=== PATIENT | female | born 1985 | race Caucasian/White ===

== ENCOUNTER → 2019-12-29 | Outpatient (CLI) | payer OTHER, SELFPAY ==
[2016-12-05 01:24] VITALS: BMI 33.0
[2019-12-29 19:21] LABS: Chlamydia Trachomatis by PCR Negative (Negative); Neisserai gonorrhoeae by PCR Negative (Negative); Probe Check PASS; Sample Adequacy Control PASS; Specimen Processing Control PASS
[2020-01-01 20:33] LABS: HPV Reflexed? NOT INDICATED
== END | disposition home or self-care (01) ==
PROVIDERS: Referring Provider Obstetrics & Gynecology; Visit Provider Obstetrics & Gynecology
DX: Z12.4 Encounter for screening for malignant neoplasm of cervix (principal); Z11.3 Encounter for screening for infections with a predominantly sexual mode of transmission
CPT/HCPCS: 87491; 87591; 88175; G0145

== ENCOUNTER → 2020-01-12 | Outpatient (CLI) | payer OTHER, SELFPAY ==
[2020-01-12 18:09] LABS: Color, Urine Yellow (Yellow); Glucose, Dipstick Normal (Normal); Ketone-Dipstick Negative (Negative); Leukocyte Esterase-Dipstick Negative /ul (Negative); Nitrite-Dipstick Negative (Negative); Occult Blood-Urine Negative /ul (Negative); Protein-Dipstick Negative (Negative); Specific Gravity, Urine 1.015 (1.002-1.030); Urine Bilirubin Dipstick Negative (Negative); Urine Clarity Clear (Clear); Urine Urobilinogen Normal (Normal); Urine pH 6.5 (5.0 - 8.0)
[2020-01-12 18:19] LABS: Absolute Lymphocyte Count 1.54 X10^3/uL (0.83-4.51); Basophil# 0.01 X10^3/uL; Basophil% 0.1 % (0-1); Eosinophil# 0.05 X10^3/uL; Eosinophils% 0.6 % (0-5); Hematocrit 37.9 % (37-47); Hemoglobin 13.3 g/dL (12.0-15.0); Lymphocyte # 1.54 X10^3/ul (4.0); Lymphocyte % 19.3 % (19-41); Mean Corp Hgb Conc 35.1 g/dL (32-36); Mean Corpuscular Volume 88.3 fL (81-99); Monocyte# 0.33 X10^3/uL; Monocyte% 4.1 % (0-10); NRBC Flagged by Analyzer 0 % (0-5); Neutrophil # 6.04 X10^3/uL (2.7-7.7); Neutrophil % 75.6 % (47-70); Platelet Count 215 K/mm3 (150-450); RBC Distribution Width CV 12.6 % (11.6-14.6); Red Blood Count 4.29 M/mm3 (4.2-5.4)
[2020-01-12 18:27] LABS: Thyroid Stim Hormone (TSH) 1.47 uIU/mL (0.358-3.74)
[2020-01-12 18:34] LABS: Amphetamine Urine VISTA NEGATIVE (<1000 ng/mL); Barbiturate Urine VISTA NEGATIVE (< 200 ng/mL); Benzodiazepine Urine VISTA NEGATIVE (< 200 ng/mL); Cocaine Urine VISTA NEGATIVE (< 300 ng/mL); Ecstacy Urine VISTA NEGATIVE (< 500 ng/mL); Methadone Urine VISTA NEGATIVE (< 300 ng/mL); PCP Urine VISTA NEGATIVE (< 25 ng/mL); THC Urine VISTA NEGATIVE (< 50 ng/mL); Vista UDS pH Range 6
[2020-01-13 09:24] LABS: HIV - WCH Non-Reactive (Nonreactive); Hepatitis B Surface Antigen Non-Reactive (Nonreactive); Hepatitis C Antibody Non-Reactive (Nonreactive); Rubella IgG 42.2 IU/mL
[2020-01-15 01:34] LABS: Prenatal RPR NONREACTIVE (NONREACTIVE)
== END | disposition home or self-care (01) ==
PROVIDERS: Referring Provider Obstetrics & Gynecology; Visit Provider Obstetrics & Gynecology
DX: Z34.81 Encounter for supervision of other normal pregnancy, first trimester (principal)
CPT/HCPCS: 80307; 81002; 84443; 85025; 86703; 86762; 86803; 87340

== ENCOUNTER → 2020-05-03 | Outpatient (CLI) | payer OTHER, SELFPAY ==
[2020-05-03 12:14] LABS: Glucose Challenge Gest 1H 50g 79 mg/dL (70-140)
== END | disposition home or self-care (01) ==
LOC: WOBLAB 10:13
PROVIDERS: Visit Provider Obstetrics & Gynecology
DX: Z34.83 Encounter for supervision of other normal pregnancy, third trimester (principal)
CPT/HCPCS: 36415; 82950

== ENCOUNTER → 2020-05-17 | Outpatient (CLI) | payer OTHER, SELFPAY ==
[2016-12-05 01:24] VITALS: BMI 33.0
[2020-05-17 10:51] LABS: Hematocrit 34.4 % (37-47); Mean Corp Hgb Conc 34.9 g/dL (32-36); Mean Corpuscular Volume 91.7 fL (81-99); Mean Platelet Vol. 9.8 fl (6.2-12.0); Platelet Count 182 K/mm3 (150-450); RBC Distribution Width CV 13.1 % (11.6-14.6); RBC Distribution Width SD 42.5 fl (35.1-43.9); Red Blood Count 3.75 M/mm3 (4.2-5.4); White Blood Count 8.6 K/mm3 (4.4-11.0)
== END | disposition home or self-care (01) ==
PROVIDERS: Visit Provider Obstetrics & Gynecology
DX: Z34.83 Encounter for supervision of other normal pregnancy, third trimester (principal)
CPT/HCPCS: 36415; 85027

== ENCOUNTER 2020-06-28 13:25 | Inpatient (IN) | payer OTHER, SELFPAY ==
[2016-12-05 01:24] VITALS: BMI 33.0
[2020-06-28] VITALS (67 sets, daily range): BP systolic 111–145; BP diastolic 57–89; PULSE 74–117; TEMP 36.4–37.3; O2SAT 89–100; BMI 27.3
[2020-06-28] MEDS: Lactated Ringers 1,000 ML 50 ML IV (14:00)
[2020-06-28] MEDS: Lactated Ringers 500 ML 999 ML IV (14:05)
[2020-06-28] MEDS: Betamethasone/Betamethasone 30 MG/5 ML Vial 12 MG IM (14:13)
[2020-06-28 14:16] LABS: Absolute Lymphocyte Count 1.54 X10^3/uL (0.83-4.51); Absolute Neutrophil Count 7.1 X10^3/uL (2.0-7.7); Basophil# 0.02 X10^3/uL; Basophil% 0.2 % (0-1); Eosinophil# 0.09 X10^3/uL; Hematocrit 36.2 % (37-47); Hemoglobin 12.3 g/dL (12.0-15.0); Lymphocyte # 1.54 X10^3/ul (4.0); Lymphocyte % 16.6 % (19-41); Mean Corpuscular Volume 91.2 fL (81-99); Mean Platelet Vol. 10.4 fl (6.2-12.0); Monocyte# 0.47 X10^3/uL; Monocyte% 5.1 % (0-10); NRBC Flagged by Analyzer 0 % (0-5); Neutrophil % 76.8 % (47-70); Platelet Count 190 K/mm3 (150-450); RBC Distribution Width CV 13.2 % (11.6-14.6); RBC Distribution Width SD 43.9 fl (35.1-43.9); Red Blood Count 3.97 M/mm3 (4.2-5.4); White Blood Count 9.3 K/mm3 (4.4-11.0)
--- NOTE | 2020-06-28 14:32 | HP.PCM_ITS ---
- Problem List (1) 36 weeks gestation of Status: Acute (2) Active labor Status: Acute Qualifiers: Fetus number: single or unspecified fetus Qualified Code(s): O60.10X0 - labor with delivery, unspecified trimester, not applicable or unspecified (3) Factor V deficiency Status: Acute (4) MTHFR (methylene THF reductase) deficiency and homocystinuria Status: Acute History and Physical Date of Admission: 06/28/20 [facility] [place] ANTEPARTUM RECORD - HISTORY AND PHYSICAL (06/28/2020) Name: WILDA MAJANO OB Physician: PETER [place]'s Physician: MERON [facility] [employer] LEADER ...................................................................... : 1985 Age: 35 Address: [address] [place] [address] Phone: [phone] Insurance Carrier: DIONYRachelLYNN [id number] Emergency Contact: MARIA T SHAFFER [phone] ...................................................................... Final ANA: 07/22/20 By Ultrasound: 12 weeks 4 days S: This is a 35y old at 36.4 weeks gestation who presented to the OB office today with complaints of consistent contractions. Reports contractions are now every 3-5 minutes and hard to breath through them. has been complicated with situational depression with an EPDS=23. Mood is stable on current medication dosage. Maternal history of Factor V Leiden with single MTHFR mutation, currently on daily BASA. PARITY: (G-Total Pregnancies P-Fullterm,Premature,Induced AB,Spont AB, Ectopics, Multiple,Living) ANA CONFIRMATION: By LMP: 10/18/19 Final ANA: 07/22/20 BLOOD TYPE: AFP: creen Nega 1 HR P GBS: Group B Beta Streptococcus is not isolated. Original Ordering Provider: Glensi Brasher RAVINDRA Culture Group B Beta Streptococcus is not isolated. Rublla titer (>10 immune)--May 30 2011: 12 Hepatatis B ben AG-- Apr 11 2013: Negative CULTURES:-- OB PROBLEM LIST: Allergy to PCN- ANAPHALAXIS AMA- declines any screening Declined MSAFP, CF. Wants cell free DNA testing Depression! EPDS=23 on 05-03-20 d/t situational stress/anxiety. Watch for worsening PPD Repeat on 06/14 was 18 Hererozygote Factor V Leiden, single MTHFR Mutation, elevated NIKKY; plan Baby ASA and consider 39 week induction; declines Lovenox ALLERGIES: PCN Anaphalaxis Penicillins Anaphylaxis MEDICATIONS: aspirin 81 mg chewable tablet One pill by mouth once a day hydroxyzine HCl 25 mg tablet one tablet every 12 hours as needed prednisone 10 mg tablets in a dose pack Take per package instructions 28 mg iron-800 mcg tablet One pill by mouth once a day Wellbutrin XL 150 mg 24 hr tablet, extended release One pill by mouth once a day Zoloft 100 mg tablet Two pills by mouth once a day Zoloft 50 mg tablet add 1 daily to 100 mg tablet Zyrtec 10 mg Tablet daily SOCIAL HISTORY: Smoking - Never Alcohol Use - denies drinking Diet - balanced Diet Lifestyle - sparated Exercise - minimal 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 Illicit Drug Use - denies use of street drugs Sexual Activity - getting Residence - lives with Place of - [place], [place] Hours Worked - 30-40 Spouse-Sig Other Name - Doyle Oswald (FOB) Spouse-Sig Other Occupation - Teacher Spouse-Sig Other Phone No - [phone] cell Children Name(s) - Ronnie (JW), Derrick (EB), Dylan (EB) PRIOR DELIVERY HISTORY ___ DEL DATE GEST LAB WT LB WT OZ TYPE ANES LABOR TX 01 Feb 08 8 0 0 0 Sab None No 01 Feb 10 8 0 0 0 p mol None No 01 Feb 11 9 0 0 0 Sab None No 06 Apr 12 39 12 7 1 Vag Epidural No 10 Feb 14 39 8 8 1 Vag Epidural No 21 Mar 17 38 12 8 2 Vag Epidural No ANTEPARTUM FLOW CHART VISIT GE RTC FU F F IL U U DATE WK MD WKS HT PN HR M SS BP ED WT IL GL D EF ST __ ____ ___ __ __ ___ __ __ __ ___ __ __ __ ___ __ 12 Oct 36 CH 1 + + 130/76 0 171 tr - 3+ 50 -1 28 Sep 34 CM 2 32 V + + 124/82 0 166 tr - 14 Sep 32 CH 2 34 V + + 120/68 0 168 tr ne 31 Aug 30 CH 2 29 + + 110/74 0 165 tr - 17 Aug 28 CH 2 29 + + 120/78 0 163 tr ne 20 Antolin 24 CH 4 24 + + 120/74 0 165 tr - 22 Nathaniel 20 CH 4 20 on + 112/82 0 159 tr - January 31 CH 3 + + 100/60 0 159 tr - 27 Dec 27 JMW US 110/70 0 151 ANTEPARTUM NOTE(S): Jun 28 2020: see note Jun 14 2020: see note May 31 2020: May 17 2020: May 03 2020: no preg complaints . See note Apr 05 2020: feeling well. Glucola given. Mar 08 2020: feeling well. Feb 13 2020: see note Jan 12 2020: COMPREHENSIVE ANTEPARTUM NOTE(S): Jun 28 2020: Wilda is being seen for PNV. Pt is 36 weeks and 4 days. She came in with cxs and possible ROM. She states cxs started 06/26/20 and intensified yesterday. Pt was put on NST for about 5 mins and then Constance Mcelroy came into check strip states pt is having variables and possible ROM to put pt in a room to be checked. AM Jun 28 2020: Placed on NST with contraction seen, FHR basline 130, +accels, variables noted. States contractions are Q4-5m. Started Sunday, but got more consistent and painful last night. Might be leaking or just urinating self. Nitrazine strip negative, but on inspection with speculum cervix appears open. SVE 350/-1. Reports +FM. Will send to for 2 hours of monitoring to admit or send home. To follow up in 1 week if not in active labor. - CH Jun 22 2020: 05/31/2020: Wilda is here today for PNV. States she is feeling well with just BH contractions. Good FM. Is covered with what is assume to be Poison Maggie Bilateral forearms and bilateral legs. No edema noted. Urine dipped tr and neg. EPDS score is 11 today. LSS 05/31/2020: Reports +FM. FHR 148. Feeling better with an EPDS= 18, but reports not letting anxiety get to her now. She is still having a lot of anxiety over the situation, but feels like she has been to control it better. Vertex this week. Poison Maggie right now which explained is worse in . She was helping a friend pull weeds in their yard. Has tried Calamine and Benadryl with no relief. In consult with Irene Champagne will send in a prednisone pack for her since it is on bilateral legs, bilateral arms and abdomen. To return in 2 weeks for routine PNV. Correctional Program Officer will not be in the office, but can see another provider ALEX BORJAS, or LILLY then return to writers schedule. At her 36 week appt we will schedule her IOL for 39 weeks. - Jun 14 2020: Wilda is here for visit. States still really struggling with her situation. She is afraid if she goes to counseling this FOB will use it against her. Encouraged her to see counseling and that would be a very unlikely outcome that trying to get help with dealing with sharing a child with someone cheating on her seems to be a benefit to him and their child. Much support provided. EPSD completed with score of 18. LMT Jun 14 2020: 35 yo @ 34/4w. Feeling +FM, denies LOF/VB. EPDS 19 today. Denies SI/HI. WIll increase zoloft to 150 mg daily, considering counseling. Has many life stressors and little support at home. Factor V leiden heterozygous, if family hx of VTE consider anticoagulation in period. May 31 2020: Wilda is here today for PNV. States she is feeling well with just BH contractions. Good FM. Is covered with what is assume to be Poison Maggie Bilateral forearms and bilateral legs. No edema noted. Urine dipped tr and neg. EPDS score is 11 today. LSS May 31 2020: Reports +FM. FHR 148. Feeling better with an EPDS= 18, but reports not letting anxiety get to her now. She is still having a lot of anxiety over the situation, but feels like she has been to control it better. Vertex this week. Poison Maggie right now which explained is worse in . She was helping a friend pull weeds in their yard. Has tried Calamine and Benadryl with no relief. In consult with Irene Champagne will send in a prednisone pack for her since it is on bilateral legs, bilateral arms and abdomen. To return in 2 weeks for routine PNV. Correctional Program Officer will not be in the office, but can see another provider ALEX BORJAS, or LILLY then return to writers schedule. At her 36 week appt we will schedule her IOL for 39 weeks. - May 17 2020: Wilda is her today for her PNV. Good FM. No edema present today. States that the Zoloft and Wellbutrin is not helping. She is taking Xanax PRN which helps her sleep at night but does not help her depression. EPDS score of 19. Rx and allergie reviewed today. No other questions or concerns expressed today. KARLEYW May 17 2020: Reviewed GTT being WNL. CBC needs repeated today. Reports +FM. FHR 148-158. EPDS today = 19. Feeling a little better, but very situational depression/stress. Atarax with Unisom is enough to help her relax to be able to sleep. Zoloft and Wellbutrin is not helping yet, but is agrees to keep it for another couple of weeks to see if it takes further effect. Tearing up throughout visit with lots of emotional support given. Feels like nothing is going to help as long as FOB is harrassing her, telling her how awful she is, shes being immature etc. Not sure if she wants him to be able to come to appts or . Discussed the effects of stress on fetus and states she understands. Will do whatever feels best for her. Understands if feelings worsen or if thoughts of harming self to call immeidately. To return in 2 weeks for routine PNV. - CH May 03 2020: NO pregnanacy complaints but is having relationship issues with FOB. He cheated on her and but wants to be involved in baby care. Tad is strggeling with her emotions on being hurt by his chaeting on her and if she should allow him to be part of baby care and attend delivery. Is on 200 mg Zoloft.[place] scale 23 . May 03 2020: See above. EPDS=23. 4-3-20 EPDS was 3 with Zoloft 200mg QD. Had a counselor, but didn't like the old one. Will call her insurance today to find out where is covered and will call us with a name. Will add Wellbutrin 150mg QD and Atarax 25mg Q12H as needed since she isn't able to sleep. Agrees to try Benadryl or Unisom, warm baths at bedtime, deep breathing exercises and is going to use oils for relaxation. To return in 2 weeks, but to call with ANY increase in depression or anxiety and agrees. - CH Apr 05 2020: Lotd of +FM. FHR 152. Feeling well. Asking about restrictions at the gym. Discussed having a load mixer for weight lifting and continuing current PRs and not trying to increase PRs. States understanding. Worried about gaining too much weight after losing 30 lbs prior to . To continue healthy lifestyle. Glucola given and instructions reviewed. To return in 4 weeks for routine PNV and will then start Q2 week appts. - Mar 08 2020: Here with new FOB for anatomy US. US today reveals male fetus, AGA, with EFW 32%. FHR on US 153. All anatomy visualized and WNL. Reports +FM. No other questions or concerns today.To return in 4 weeks for routine PNV. - Feb 13 2020: Wilda is being seen for PNV. Pt has not been feeling well due to headaches. Pt states she feels she needs to drink more since being active at the gym and being outside alot. Pt states tylenol does not help and she would get headaches in prior . She also complains of cramping. AM Feb 13 2020: Declines toxo screening with cats at home. Does have some FM. FHR today 150. Has varicose veins in the right ankle, calf and thigh. The thigh one is hurting, but doesn't want doppler study at this time. Will watch it and if worsening will call. Advised thigh high compression stockings. To return in 3 weeks for anatomy US and PNV. - Jan 16 2020: Telehealth NOB completed today. Wilda is AB3. She relates going through a dissolution currently. is not the FOB of baby. New FOB plans to be involved and her current does not know she is . She is feeling pretty well except for fatigue. Working as a nursing home assistant administrator currently. She is moving right now and is stressed with all going on. was unplanned and she is moving along with Covid-19 pandemic while from . Reviewed AMA diagnosis and she declines any testing for this. Not interested in MSAFP, CF, or cfDNA testing. She is active and feels she takes good care of her self. As this is her fourth child she is without any real questions or concerns. She plans vaginal delivery and as has done prior. Labs reviewed but does have cats and changes litter box and needs to have Toxo studies done at next visit. Agreeable to this. Consents completed. Encouraged compliance with Covid 19 restrictions. Without question or concern. LMT NEW Jan 11 2020: (m,m,f*) Boyfriend's first child. Had anatomy Us today which is consistent with LMP and ANA 07/22/20. FHR 161. Wants to add sneak peak to lab work today instead of the chromosomal tesing. Is anxious about gender, but boyfriend wants to do a gender reveal. Is worried about her three kids accepting the new baby as their sibling. She is still going through a divorce and trying to do 50/50 custody and stay amicable. EPDS=3. Boyfriend is AA and can be tested for sickle cell trait since hasn't been before. Is slightly nauseas, but otherwise feeling really well. Denies any questions or concerns. To return in 4 weeks for routine PNV with JW. - Dec 29 2019: Wilda presents here today for Missed Menses appointment. 34 y.o. G 7 P 3 non-smoker with regular menses and LMP of 10-18-19 lasting jose average of 4 days. UPT is positive today in our Office. Presents at 10 weeks with an approximate ANA of 07-24-20. Denies spotting/bleeding thus far in . Concerns voiced regarding history of Missed AB's . History of normal pap screenings from 2010 to 2014, ASCUS in 2016, and normal in 2016. Medication and Allergy lists up-dated and currently taking an OTC Vitamin and An ASA 81 mg daily. JONN Dec 28 2020: ok Aug 04 2019: Wilda is being seen for annual. LMP 07-26-19. Menses monthly and regular. Last pap 2017 WNL, pap due 2019. Pt needs refill on Zoloft. Medications and allergies are up to date. AM Aug 04 2019: Wilda is a here for annual exam; Pap in 2006 WNL, pap today deferred per ACSSP guidelines until 2021 or patient request; patient declines pelvic exam today; denies problems, relationship monogamous, menses Q 30 days, lasting 3-5 day, bleeding begins moderately heavy then tapes off. Has experienced a 40 lb weight loss accomplished via diet and Crossfit. Depression well controlled on current dose of Zoloft, needs refill; not using contraception, is OK w/potential of another ; head to toe exam w/clinical breast exam normal; reinforced diet/exercise accomplishments, encouraged baseline mammogram by age 40, discussed potential cycle changes as approaches perimenopause, refilled Zoloft; RTO for next annual and PRN - KVW REVIEW OF SYSTEMS: GENERAL - Denies fever, or chills SKIN - Denies rash, new skin lesions, or change in moles EYES - Denies blurred vision, or change in visual acuity EARS - Denies ear pain, or difficulty hearing NOSE - Denies nasal congestion, discharge, or bleeding MOUTH - Denies sore throat, or difficulty swallowing NECK - Denies pain or swelling RESPIRATORY - Denies shortness of breath, cough, wheezing CARDIOVASCULAR - Denies palpitations, chest pain, orthopnea, PND, peripheral edema, syncope or claudication GASTROINTESTINAL - Denies nausea, vomiting, diarrhea, constipation, Denies abdominal pain, melena and or bright red blood GENITOURINARY - Denies dysuria, frequency of urination, urgency, or hesitancy MUSCULOSKELETAL - Denies joint or muscle pain, or back pain NEUROLOGICAL - Denies localized numbness, weakness, or tingling PSYCHIATRIC - Denies depression, anxiety, substance abuse or suicide attempts ENDOCRINE - Denies heat or cold intolerance, weight loss or gain, increasing thirst HEMATO-IMMUNOLOGIC - Denies easy bruising, bleeding, oral ulcerations or recurrent infections GENETICS SCREENING: Age 35+ years: Yes Thalassemia: No Neural Tube Defect: No Down Syndrome: No KB-SACHS: No Sickle Cell Disease: tested and neg Hemophilia: No Musc. Dystrophy: No Cystic Fibrosis: No-declines screening Surinder Chorea: No Mental Retardation: No Fragile X: No Other genetic: No Other defects: No SABs/still births: Yes Drugs since LMP: No INFECTION HISTORY: High risk AIDS: No High risk Hepatitis: No Exposed to TB: No Exposed to Herpes: No Rash/viral illness since LMP: No History of STD: No MENSTRUAL HISTORY: *Menses Amount/Duration: 4 daysMenses Regularity: RegularFrequency: monthlyMenarche (Age Onset): 10* PAST SUMMARY: PARITY: 1. Total Pregnancies............ 7 2. Full Term Pregnancies........ 3 3. Premature.................... 0 4. Abortions - Induced.......... 0 5. Abortions - Spontaneous...... 3 6. Ectopics..................... 0 7. Multiple Births.............. 0 8. Living Children.............. 3 PAST #1: Date of :.................. 10/18/07 Gestation Weeks:................ 8 Length of labor(hours):......... 0 Sex:............................ Weight-lbs:............... 0 Weight-oz:................ 0 Type of Delivery:............... Sab Type of Anesthesia:............. None Place of Delivery:.............. [place] Treatment of Labor?:.... No Comment: D PAST #2: Date of :.................. 10/18/09 Gestation Weeks:................ 8 Length of labor(hours):......... 0 Sex:............................ Weight-lbs:............... 0 Weight-oz:................ 0 Type of Delivery:............... p molar Type of Anesthesia:............. None Place of Delivery:.............. [place] Treatment of Labor?:.... No Comment: D PAST #3: Date of :.................. 10/18/10 Gestation Weeks:................ 9 Length of labor(hours):......... 0 Sex:............................ Weight-lbs:............... 0 Weight-oz:................ 0 Type of Delivery:............... Sab Type of Anesthesia:............. None Place of Delivery:.............. [place] Treatment of Labor?:.... No Comment: D PAST #4: Date of :.................. 12/22/11 Gestation Weeks:................ 39 Length of labor(hours):......... 12 Sex:............................ M Weight-lbs:............... 7 Weight-oz:................ 1 Type of Delivery:............... Vag Type of Anesthesia:............. Epidural Place of Delivery:.............. [place] Treatment of Labor?:.... No Comment: INDUCED, ELECTIVE PAST #5: Date of :.................. 10/27/13 Gestation Weeks:................ 39 Length of labor(hours):......... 8 Sex:............................ M Weight-lbs:............... 8 Weight-oz:................ 1 Type of Delivery:............... Vag Type of Anesthesia:............. Epidural Place of Delivery:.............. [place] Treatment of Labor?:.... No Comment: PAST #6: Date of :.................. 12/05/16 Gestation Weeks:................ 38 Length of labor(hours):......... 12 Sex:............................ F Weight-lbs:............... 8 Weight-oz:................ 2 Type of Delivery:............... Vag Type of Anesthesia:............. Epidural Place of Delivery:.............. [place] Treatment of Labor?:.... No Comment: NONE GENERAL PHYSICAL EXAMINATION: Gen: NAD HEENT: NC/AT CARDIORESP: no increased effort ABDOMEN: soft, NT, gravid EXT: no edema NEURO: no focal deficits CE: 5cm PELVIC EXAMINATION: --SVE /-1 intact amniotic sac PAST MEDICAL HISTORY: -- Elieser Marcano with single MTHFR mutation --Depression --[facility] Allergy Labs: Labs Blood Type: A RH: POSITIVE RPR/VDRL/Syphilis Nonreactive Rubella status Immune HbSAg Negative Date Done: 01/12/20 Chlamydia Negative Gonorrhea Negative HIV/AIDS Non-Reactive Group B Strep: Collected on Admission A/P: Will admit in active labor. Has been on baby ASA throughout for Factor V Leiden with single MTHFR mutation. Situational depression and reports anxiety today as she is alone. Plans epidural for pain management. Dr. Irene Champagne updated and will give Celestone. Recheck SVE in 2 hours. Chief Telephone Operator updated on admission. Expect .
[2020-06-28 14:46] LABS: Group B Strep DNA By PCR Negative (Negative); Internal Control PASS; Probe Check PASS; Specimen Processing Control PASS
[2020-06-28 14:48] LABS: Prothrombin Time (Protime)PT. 12.3 SECONDS (11.7-14.9)
[2020-06-28 14:49] LABS: Partial Thromboplast Time 25.3 Seconds (24.1-36.2)
[2020-06-28] MEDS: fentaNYL-bupivacaine (epidural) 100 ML BAG EPIDURAL ×2 (15:09→19:36)
[2020-06-28] MEDS: Lactated Ringers 1,000 ML 200 ML IV ×2 (16:06→21:26)
[2020-06-28] MEDS: Acetaminophen 325 MG Tablet PO (18:43)
--- NOTE | 2020-06-28 20:45 | PCM.PN.OB ---
<Constance Mcelroy - Last Filed: 06/28/20 20:45> Patient Problems: Active and Suspected Problems 36 weeks gestation of (Acute) Active labor (Acute) Factor V deficiency (Acute) MTHFR (methylene THF reductase) deficiency and homocystinuria (Acute) Subjective: Denies any pain. Still able to move around in bed. Feels nervous and anxious. Objective: VSS. NST FHR baseline 140, +accels, -decels, moderate variability. SVE 8.5/90/-1 with a bulging bag. - Physical Exam Vitals/I&O's: Vital Signs Temp Pulse BP Pulse Ox 98.9 F 94 114/62 97 06/28/20 19:25 06/28/20 20:08 06/28/20 19:26 06/28/20 20:08 Weight: 77 kg Body Mass Index (BMI) 27.3 Intake and Output for Last 24 Hours 06/26/20 06/27/20 06/28/20 23:59 23:59 23:59 Intake Total 290.84 / 290.84 Output Total 650 / 650 Balance -359.16 / -359.16 General: Alert, Oriented x3, Cooperative HEENT: Atraumatic, PERRLA, EOMI, Normocephalic Neck: Supple, No JVD, Negative Carotid Bruits Lungs: Clear to auscultation, Normal air movement Cardiovascular: Regular rate, No murmurs Abdomen: Bowel Sounds Present, Soft, Non Tender Extremities: No edema, Capillary Refill Less than 3 Seconds Skin: No rashes, No breakdown Musculoskeletal: No Tenderness to Palpation of Joints or Extremities Neurological: Cranial nerves II-XII grossly intact Psych/Mental Status: Normal Affect, Appropriate Laboratory Results 06/28/20 13:25: Group B Strep DNA Negative, Specimen Comment Not Reportable 06/28/20 14:00: WBC 9.3, RBC 3.97 L, Hgb 12.3, Hct 36.2 L, MCV 91.2, MCH 31.0, MCHC 34.0, RDW Std Deviation 43.9, RDW Coeff of Sneha 13.2, Plt Count 190, MPV 10.4, Immature Gran % (Auto) 0.300, Neut % (Auto) 76.8 H, Lymph % (Auto) 16.6 L, [place] % (Auto) 5.1, Eos % (Auto) 1.0, Baso % (Auto) 0.2, Absolute Neuts (auto) 7.1, Absolute Lymphs (auto) 1.54, Nucleated RBC % 0 06/28/20 14:00: Blood Type A POSITIVE, Antibody Screen NEGATIVE 06/28/20 14:00: PT 12.3, INR 1.0, APTT 25.3 Current Medications Acetaminophen (Tylenol) 325 - 650 mg PO Q4H PRN PRN PRN Reason: Pain Score 1-3 Last Admin: 06/28/20 18:43 Dose: 650 mg Documented by: Al Hydroxide/Mg Hydroxide (Mylanta Ii) 15 - 30 ml PO Q4H PRN PRN PRN Reason: INDIGESTION Citric Acid/Sodium Citrate (Bicitra) 30 ml PO X1 PRN PRN Reason: Section Ephedrine Sulfate () 10 mg IV Q10M PRN PRN Reason: hypotension Ephedrine Sulfate () 10 mg IM Q30M PRN PRN Reason: hypotension Fentanyl Citrate (Sublimaze (100mcg Ampule)) 25 - 50 mcg IV Q2H PRN PRN PRN Reason: Pain Score 4-10 Fentanyl/Bupivacaine/Sodium Chlor () 0 ml EPIDURAL [facility]; Protocol Last Admin: 06/28/20 19:36 Dose: 100 ml Documented by: Lactated Ringer's () 500 mls @ 999 mls/hr IV .Q31M PRN PRN Reason: Epidural Last Infusion: 06/28/20 15:10 Dose: Infused Documented by: Lactated Ringer's () 500 mls @ 999 mls/hr IV .Q31M PRN PRN Reason: Corrective Measures Lactated Ringer's () 1,000 mls @ 50 mls/hr IV .Q20H JUAN DAVID Last Admin: 06/28/20 16:06 Dose: 200 mls/hr Documented by: Nalbuphine HCl (Nubain) 5 mg IV Q3H PRN PRN PRN Reason: ITCHING Naloxone HCl (Narcan) 0.02 mg IV Q1M PRN PRN Reason: RR< 10 AND PT UNRESPONSIVE Naloxone HCl (Narcan) 0.02 mg IV Q1M PRN PRN Reason: RR <10 and pt unresponsive Ondansetron HCl (Zofran) 4 mg IV Q4H PRN PRN PRN Reason: NAUSEA Prochlorperazine Edisylate (Compazine Iv) 10 mg IV Q6H PRN PRN PRN Reason: NAUSEA Sodium Chloride () 10 - 40 ml IV X1 PRN PRN Reason: SALINE FLUSH Medical Necessity - Tobacco Use Smoking Status: Never smoker Assessment/Plan All Active Problems 36 weeks gestation of (Acute) Active labor (Acute) Factor V deficiency (Acute) MTHFR (methylene THF reductase) deficiency and homocystinuria (Acute) A/P: at 36w4d in active labor SVE 8.5/90/-1 Bulging bag of amniotic fluid, still intact Epidural with effective pain management Will recheck SVE at 2200 or as needed <Katherine Champagne - Last Filed: 07/01/20 08:49> - Physical Exam Vitals/I&O's: Vital Signs Temp Pulse Resp BP Pulse Ox 98.3 F 87 18 120/73 98 06/30/20 13:53 06/30/20 13:53 06/30/20 13:53 06/30/20 13:53 06/30/20 13:53 Oxygen Delivery Method Room Air Weight: 77 kg Body Mass Index (BMI) 27.3 Intake and Output for Last 24 Hours 06/29/20 06/30/20 07/01/20 23:59 23:59 23:59 Intake Total 333 / 333 Output Total 800 / 800 350 / 350 Balance -467 / -467 -350 / -350 Assessment/Plan Agreed with above. Continued expectant management.
[2020-06-28] MEDS: Oxytocin 30 units/NS 500 ml 30 UNITS/500 ML IV.SOLN 334 UNITS IV (22:35)
--- NOTE | 2020-06-28 22:55 | OP.PCM_ITS ---
<Constance Mcelroy - Last Filed: 06/28/20 23:19> Problem List (1) 36 weeks gestation of Status: Acute (2) Active labor Status: Acute Qualifiers: Fetus number: single or unspecified fetus Qualified Code(s): O60.10X0 - labor with delivery, unspecified trimester, not applicable or unspecified (3) Factor V deficiency Status: Acute (4) MTHFR (methylene THF reductase) deficiency and homocystinuria Status: Acute Vaginal Delivery Maternal Presentation: Active Labor Amniotic Membrane Rupture Type: Artificial Rupture of Membrane time: at pushing Amniotic Fluid Description: Clear Final ANA: 07/22/20 Final ANA Source: US <20 weeks Gestational age: 36 Weeks and 4 Days Date of Procedure: 06/28/20 Pre-Operative Diagnosis: Active Labor Post-Operative Diagnosis: S/P Surgery/ Procedure Performed: Spontaneous Vaginal Delivery Anesthesiologist: Sharri Camarillo Type of Anesthesia: Epidural Description of Procedure: Patient was complete with a bulging bag with teletypewriter operator's arrival. Attending Dr. Irene Champagne updated that patient was complete. At this time AROM with clear fluid. scalp electrode placed per teletypewriter operator. She pushed well with one contraction to deliver head in OA to LOBITO. The male infant was placed on the maternal abdomen and further attended to by nursery personnel. The cord was doubly clamped and cut by FOB under CNM supervision at approximately 5 minutes of life. With gentle traction the placenta delivered in Roa mechanism with trailing membranes. Manual express of two large clots. IV Pitocin started per protocol. On inspection placenta appears intact with a three vessel cord and marginal cord insertion. First degree perineal laceration repaired with a 3.0 rapide under epidural anesthesia. Apgars 8/9. EBL 300. Sponge and needle count correct x 2. Attending MD: Dr. Irene Champagne Presentation: Vertex, LOBITO Placental Delivery Description: Spontaneous Placenta Disposition: Routine to Lab Cord Vessel Description: 3 Vessels Cord Entanglement: None Drain: Acharya to straight drain Estimated Blood Loss: 350 Infant A gender: Male (1 minute): 8 (5 minute): 9 Episiotomy Description: None Laceration: 1st degree - perineal Medications given after delivery: IV Pitocin <Katherine Champagne - Last Filed: 07/01/20 08:45> Vaginal Delivery Description of Procedure: Agreed with above.
--- NOTE | 2020-06-28 23:24 | PLAC_PTH ---
PATIENT: OLESYA MAJANO LOC: WP U#:[id number] AGE/SX: 35/F ROOM: WP005 RE06/28/[address]: Constance Mcelroy CNM : 1985 BED: 1 DIS: 06/30/2020 SPEC #: [id number] RECD: 06/28/20 23:32 STATUS: AFTAB YOCASTA #: [id number] AJITH: 06/28/20 23:[address]: Constance Mcelroy DEPT: SURGICAL PATHOLOGY RECD BY: Briana Gant ENTERED: 06/29/20 08:20 SP TYPE: PLACENTA OTHR DR: No Primary Care Phys Tissues: Placenta, NOS Procedures: Surgery Specimen Level V HEADER OPERATION: Vaginal delivery PRE-OP DIAGNOSIS: Decreased heart rate, marginal insertion TISSUE SUBMITTED: Placenta MICROSCOPIC DIAGNOSIS Placenta: Placental disc - third trimester placenta (610 gm). Membranes - no pathologic diagnosis. Umbilical cord - three blood vessels and no pathologic diagnosis. SJ:ida 07/01/20 MICROSCOPIC DESCRIPTION Slides are reviewed. GROSS DESCRIPTION SPECIMEN: PLACENTA / CLINICAL INFORMATION: A. Weight: 3.06 kg B. Gestational Age: 36 weeks C. Sex: Male PLACENTAL WEIGHT (POST FIXATION): 610 gm PLACENTAL DIMENSIONS: 17.5 x 16 x 3.5 cm PLACENTAL SHAPE: Usual ovoid PLACENTAL WEIGHT FOR GESTATIONAL AGE: Within >99th percentile MEMBRANES - Present A. Insertion: Marginal B. Site of rupture from edge: 3 cm from edge of placental disc C. Color of membrane: Cartwright-reyes D. Abnormalities: None UMBILICAL CORD - Present A. Color: Cartwright-reyes B. Insertion: Eccentric C. Length: 55 cm D. Diameter: 1.2 cm E. Number of vessels: Three F. Abnormalities: None PLACENTAL DISC - Present A. Color of surface: Cartwright-reyes B. surface abnormalities: None C. Maternal cotyledons: Intact with minimal tears D. Attached retro placental clot: No clot E. Cut surface: Dark red and spongy F. Lesions: None G. Separate clot: Absent SECTIONS SUBMITTED: 1. Umbilical cord ( end notched) 2. Umbilical cord, placental end 3. Membrane roll 4. Placental disc, and maternal surfaces 5. Placental disc, and maternal surfaces 6. Placental disc, and maternal surfaces AM:ida 06/30/20 TC:4 CPT: 21364
--- NOTE | 2020-06-28 23:25 | DCINST_ITS ---
Discharge Diet: No Restrictions Discharge Activity: Return to Normal Activity, May not drive while taking narcotic pain medications., May Shower May resume sexual activity in: 4-6 weeks Additional Activity Instructions:: Nothing in the vagina for 4-6 weeks. You may return to work/school in 6 weeks. Call your doctor if your incision/area has: Continuous Slow Oozing, Sudden Increased Bleeding, Increased Pain/ Swelling, Increased Redness, Foul Smelling Discharge Additional Instructions: If you experience any of the following, contact your healthcare provider. * Bleeding that soaks a pad every hour for 2 hours * Fever 100.4 or higher * Unrelieved incision or abdominal pain * Swelling, redness, discharge or bleeding from your incision or episiotomy site * Your incision begins to separate * Problems urinating (including inability to urinate or burning while urinating). * Visual changes * Severe headache * Flu-like symptoms * Pain or redness in one of both of your breasts * Pain, warmth, tenderness or swelling in your legs, especially the calf area * Frequent nausea and vomiting * Symptoms of depression or anxiety If you experience any of the following, call 911 or go to the nearest Emergency Room. * Chest pain * Problems breathing * Seizure activity * Partial or complete paralysis of a body part, slurred speech, weakness or drooping of the face, or a sudden inability to walk or hold your balance Allergies/Adverse Reactions: Allergies Penicillins Allergy (Severe, Verified 06/28/20 10:44) Anaphylaxis Medications to take at Discharge Aspirin [Aspirin, Baby] 81 mg PO DAILY@0800 09/01/13 Vits [Prenatabs FA ] 1 tablet PO DAILY 09/01/13 Sertraline HCl 200 tab PO DAILY 10/10/13 Cetirizine HCl [Zyrtec] 10 mg PO DAILY 12/05/16 buPROPion tablets [Wellbutrin tablets] 50 mg PO DAILY 06/28/20 hydrOXYzine tablet [Atarax tablet] 10 mg PO BID PRN PRN 06/28/20 Please Follow Up With: Constance Mcelroy CNM When: Call to make an appointment with your CNM in 2 weeks for follow up and for a 6 week follow up . Primary Care Physician: Care Physician,No Primary [Primary Care Provider] - Test Results: Test results from this visit will be discussed in further detail at your follow- up appointment, if applicable.
[2020-06-29] VITALS (12 sets, daily range): BP systolic 101–134; BP diastolic 56–90; PULSE 57–100; RESP 16–18; TEMP 36–36.7; O2SAT 97
--- NOTE | 2020-06-29 08:15 | PCM.PN.OB ---
Patient Problems: Active and Suspected Problems 36 weeks gestation of (Acute) Active labor (Acute) Factor V deficiency (Acute) MTHFR (methylene THF reductase) deficiency and homocystinuria (Acute) Subjective: Doing well this morning. Son was able to nurse two times last night and then became too sleepy. He is getting sugar treatment, but she plans to continue to breastfeed. Denies heavy bleeding or pain. Objective: VSS. Fundus is firm, midline, u/2. Lochia rubra light. - Physical Exam Vitals/I&O's: Vital Signs Temp Pulse Resp BP Pulse Ox 98.1 F 57 L 16 101/71 97 06/29/20 04:54 06/29/20 04:54 06/29/20 04:54 06/29/20 04:54 06/29/20 04:54 Oxygen Delivery Method Room Air Weight: 77 kg Body Mass Index (BMI) 27.3 Intake and Output for Last 24 Hours 06/27/20 06/28/20 06/29/20 23:59 23:59 23:59 Intake Total 1724.51 / 1724.51 333 / 333 Output Total 650 / 650 800 / 800 Balance 1074.51 / 1074.51 -467 / -467 General: Alert, Oriented x3, Cooperative HEENT: Atraumatic, PERRLA, EOMI, Normocephalic Neck: Supple, No JVD, Negative Carotid Bruits Lungs: Clear to auscultation, Normal air movement Cardiovascular: Regular rate, No murmurs Abdomen: Bowel Sounds Present, Soft, Non Tender Extremities: No edema, Capillary Refill Less than 3 Seconds Skin: No rashes, No breakdown Musculoskeletal: No Tenderness to Palpation of Joints or Extremities Neurological: Cranial nerves II-XII grossly intact Psych/Mental Status: Normal Affect, Appropriate Laboratory Results 06/28/20 13:25: Group B Strep DNA Negative, Specimen Comment Not Reportable 06/28/20 14:00: WBC 9.3, RBC 3.97 L, Hgb 12.3, Hct 36.2 L, MCV 91.2, MCH 31.0, MCHC 34.0, RDW Std Deviation 43.9, RDW Coeff of Sneha 13.2, Plt Count 190, MPV 10.4, Immature Gran % (Auto) 0.300, Neut % (Auto) 76.8 H, Lymph % (Auto) 16.6 L, [place] % (Auto) 5.1, Eos % (Auto) 1.0, Baso % (Auto) 0.2, Absolute Neuts (auto) 7.1, Absolute Lymphs (auto) 1.54, Nucleated RBC % 0 06/28/20 14:00: Blood Type A POSITIVE, Antibody Screen NEGATIVE 06/28/20 14:00: PT 12.3, INR 1.0, APTT 25.3 Current Medications Acetaminophen (Tylenol) 1,000 mg PO Q8H PRN PRN PRN Reason: Pain Score 1-10 Bisacodyl (Dulcolax) 10 mg RECTAL UD PRN PRN Reason: If no BM Dibucaine (Dibucaine) 1 applic TOPICAL TID PRN PRN; Protocol PRN Reason: Discomfort Hydrocortisone (Hytone) 1 applic TOPICAL TID PRN PRN; Protocol PRN Reason: Discomfort Ibuprofen (Motrin) 600 mg PO Q6H PRN PRN PRN Reason: Pain Score 1-10 Methylergonovine Maleate (Methergine) 0.2 mg IM X1 PRN PRN Reason: Excess bleeding/uterine atony Ondansetron HCl (Zofran) 4 mg IV Q4H PRN PRN PRN Reason: Nausea Senna/Docusate Sodium (Senokot-S, Heather-Colace) 1 - 2 tablet PO DAILY PRN PRN PRN Reason: Constipation Simethicone (Mylicon) 80 mg PO PCHS PRN PRN Reason: Indigestion/Stomach pain Sodium Chloride () 5 - 15 ml IV UD PRN PRN Reason: SALINE FLUSH Throat Lozenges (Dermoplast (Sp)) 1 applic TOPICAL 4X/DAY PRN JUAN DAVID; Protocol Zolpidem Tartrate (Ambien (Generic)) 5 mg PO QHS PRN PRN PRN Reason: Insomnia Medical Necessity - Tobacco Use Smoking Status: Never smoker Assessment/Plan All Active Problems 36 weeks gestation of (Acute) Active labor (Acute) Factor V deficiency (Acute) MTHFR (methylene THF reductase) deficiency and homocystinuria (Acute) A/P: S/P Day #1 mother infant with glucose checks Normal involution and course Would like to discharge tomorrow if son is able to discharge
--- NOTE | 2020-06-29 12:27 | CASEMGMT ---
Social Work Assessment Labor and Delivery Unit Date of Referral: 06/29/2020 Time of Referral: 07:12 Referred By: Constance Mcelroy CNM Date of Intervention: 06/29/2020 Time of Intervention: 12:27 Reason for Referral: Limited support. History obtained from: Mother of baby (MOB), Chart, Nursing staff. Household composition: MOB, Ronnie Gonzalez (age 8), Derrick Gonzalez (age 6), Dylan Gonzalez (age 3) and now this live in private home. All children share maternity. MOB?s first children share paternity (Pepe Gonzalez). MOB reports to have not chosen a name for infant yet and to be ?unsure? due to recent relationship stressors/ending relationship with Father of baby (FOB). MOB reports that was not planned but accepted. Patient's parent/guardian status: Alleged FOB is Doyle Akers. MOB reports that Doyle cheated on MOB when MOB was 6 months . MOB reports to also be in the middle of a divorce with Pepe Gonzalez, the father of MOB?s other children for the past year. MOB was in a relationship with Pepe for 18 years. MOB reports length of relationship with Doyle to be ?about a year.? MOB reports to no longer be in a relationship with Doyle but did allow Doyle to be the support person during delivery due to wanting Doyle to ?have a chance? to be a part of infant life. MOB reports to have a positive working relationship with Pepe and to see Pepe daily. MOB reports ?we do shared parenting well.? MOB reports that children see Pepe and MOB daily. MOB reports that Doyle and ANGELINA chose a name together that was a ?family name? for Doyel. MOB reports to not be sure of how much Doyle will be involved in infants/MOB?s life and is not sure if MOB wants to use the name that was chosen. Medical History: MOB with history prior to this infant being born. MOB with vaginal delivery at 36 weeks. MOB with history of Anxiety. born on 06/28/2022 with Apgars of 8 and 9 at 1 min and 9 min. to follow with [facility] in [place] for pediatric care. MOB with appropriate care. MOB reports plant to breastfeed and that is going well. Educational Status: MOB denies any issues with comprehension or understanding. Financial Status: MOB reports no financial concerns. 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 Supplies: MOB reports to have needed supplies including car seat and crib. Childcare/Caregiver(s): MOB reports to be primary caregiver for and other children until MOB returns to working. MOB reports to have a sitter that has any of the children that are not in school. Transportation: Denies any issues. Programs/Agencies Involved: Denies any active community supports. Children Services/Legal Issues: Denies any history of children services. No legal issues outside of divorce with Pepe Gonzalez. Mental Health History: MOB reports history of Anxiety. MOB taking medication to manage mental health. MOB with no active counseling services. MOB reports history of having thoughts that ?I might be better off .? MOB denies any plan or intent to complete suicide. MOB reports no active suicidal thoughts and to want to live for children. MOB reports to have support from sisters and family members. This social service technician able to facilitate conversation with MOB about depression signs and symptoms. MOB denies history of depression with prior pregnancies. MOB with multiple recent stressors. MOB able to emotionally regulate through conversation. This social service technician normalizing MOB?s current emotions and thoughts. This social service technician able to collaborate with patient on patient current strengths and things that patient can control. MOB concerned about wanting FOB to be involved in infants? life but aware that MOB is not able to ?force this.? MOB reports that FOB does well with infant and appears to have a connection when FOB is at the hospital. Substance Use History: Denies substance abuse/use. Maternal and Infant Drug Screens: MOB with negative tox screen on 01/12/2020. No tox screen completed on . PHQ9: MOB with a PHQ-9 score of 10/27. This social service technician able to facilitate conversation with MOB about MOB?s current stressors. MOB reporting interest in counseling services and plan to set up counseling in the future as an outside support. MOB reports to have positive support from family. MOB expressing multiple emotions/feelings throughout assessment. This social service technician able to provide support and active listening. This social service technician providing MOB with list of counseling agencies for MOB to explore. Family/Social Stressors: MOB currently going through a divorce. MOB with recent breakup with FOB due to FOB cheating on MOB. Support Systems: MOB reports to have support from MOB?s sister that lives in [place]. MOB reports to see sister often as ?she is close.? MOB reports to also speak with MOB?s sister and that MOB?s sister is a positive support. MOB does identify that MOB?s mother has passed and is no longer living. MOB does identify Pepe as ?a good man, but not a good .? MOB reports to have some support from Pepe. Depression and Anxiety/Shaken Baby/Safe Sleeping: MOB provided with written information on Depression and Anxiety, Shaken Baby, Safe Sleeping and [facility] Resources. ASSESSMENT: Met with MOB and in room. Introduced self and social service technician role. MOB tearful at times during the assessment. MOB able to collect self and appropriately manage emotions. MOB reports to have a connection with . MOB gazing at infant throughout assessment. Infant resting in bassinet during assessment. MOB getting up once during assessment to check as has spit up. MOB does appear to be depressed. MOB is future oriented and wants to live for children. MOB reports to have support from sister and able to call MOB?s sister whenever needed. MOB reports multiple times ?I just don?t know how this is all going to work out.? This social service technician normalizing MOB?s emotions/feelings/thoughts. MOB thanking this social service technician and engaged in assessment/conversation with this social service technician. MOB reports no community needs/concerns. MOB communication that infant may need to be transferred to [facility] at [facility] due to infant low blood sugars and that nursing staff is waiting for the next blood sugar check to see if infant will need transferred. MOB reports to be ?okay with this.? MOB is open to this social service technician checking in with MOB tomorrow if infant is transferred to the SCN. PLAN: to discharge to home with MOB and three other siblings. No other services requested or indicated. Art Jalloh MSW, JOSHUA
[2020-06-29] MEDS: Sertraline 100 MG Tablet 200 MG PO (17:31)
[2020-06-29] MEDS: buPROPion (XL) 150 MG TABLET.XL PO (17:31)
[2020-06-29] MEDS: Ibuprofen 600 MG Tablet PO (17:35)
[2020-06-30 02:21] VITALS: BP 104/56; PULSE 85; RESP 16; TEMP 36.1
--- NOTE | 2020-06-30 08:09 | PN.OBGYN_ITS ---
Patient Problems: Active and Suspected Problems 36 weeks gestation of (Acute) Active labor (Acute) Factor V deficiency (Acute) MTHFR (methylene THF reductase) deficiency and homocystinuria (Acute) Subjective: Doing well right now. Was able to get some sleep. Last night abdominal cramping was so bad she had to take medication. Reports son might stay in SCN and would like to go to hotel status tonight if needed. Denies heavy bleeding. Continues to breastfeed and pump. Objective: VSS. Fundus is firm, midline at u. Lochia rubra light. - Physical Exam Vitals/I&O's: Vital Signs Temp Pulse Resp BP Pulse Ox 97 F L 85 16 104/56 L 97 06/30/20 02:21 06/30/20 02:21 06/30/20 02:21 06/30/20 02:21 06/29/20 20:42 Oxygen Delivery Method Room Air Weight: 77 kg Body Mass Index (BMI) 27.3 Intake and Output for Last 24 Hours 06/28/20 06/29/20 06/30/20 23:59 23:59 23:59 Intake Total 1724.51 / 1724.51 333 / 333 Output Total 650 / 650 800 / 800 Balance 1074.51 / 1074.51 -467 / -467 General: Alert, Oriented x3, Cooperative HEENT: Atraumatic, PERRLA, EOMI, Normocephalic Neck: Supple, No JVD, Negative Carotid Bruits Lungs: Clear to auscultation, Normal air movement Cardiovascular: Regular rate, No murmurs Abdomen: Bowel Sounds Present, Soft, Non Tender Extremities: No edema, Capillary Refill Less than 3 Seconds Skin: No rashes, No breakdown Musculoskeletal: No Tenderness to Palpation of Joints or Extremities Neurological: Cranial nerves II-XII grossly intact Psych/Mental Status: Normal Affect, Appropriate Current Medications Acetaminophen (Tylenol) 1,000 mg PO Q8H PRN PRN PRN Reason: Pain Score 1-10 Bisacodyl (Dulcolax) 10 mg RECTAL UD PRN PRN Reason: If no BM Bupropion HCl (Bupropion (Xl) 150 Mg Tablet.Xl) 150 mg PO DAILY JUAN DAVID Last Admin: 06/29/20 17:31 Dose: 150 mg Documented by: Dibucaine (Dibucaine) 1 applic TOPICAL TID PRN PRN; Protocol PRN Reason: Discomfort Hydrocortisone (Hytone) 1 applic TOPICAL TID PRN PRN; Protocol PRN Reason: Discomfort Ibuprofen (Motrin) 600 mg PO Q6H PRN PRN PRN Reason: Pain Score 1-10 Last Admin: 06/29/20 17:35 Dose: 600 mg Documented by: Influenza Virus Vaccine Quadrival (Influenza Vaccine (6mos+)/Pf 0.5 Ml Syringe) 0.5 ml IM .ONCE ONE Stop: 06/30/20 07:59 Methylergonovine Maleate (Methergine) 0.2 mg IM X1 PRN PRN Reason: Excess bleeding/uterine atony Ondansetron HCl (Zofran) 4 mg IV Q4H PRN PRN PRN Reason: Nausea Senna/Docusate Sodium (Senokot-S, Heather-Colace) 1 - 2 tablet PO DAILY PRN PRN PRN Reason: Constipation Sertraline HCl (Sertraline 100 Mg Tablet) 200 mg PO DAILY JUAN DAVID Last Admin: 06/29/20 17:31 Dose: 200 mg Documented by: Simethicone (Mylicon) 80 mg PO PCHS PRN PRN Reason: Indigestion/Stomach pain Sodium Chloride () 5 - 15 ml IV UD PRN PRN Reason: SALINE FLUSH Throat Lozenges (Dermoplast (Sp)) 1 applic TOPICAL 4X/DAY PRN JUAN DAVID; Protocol Zolpidem Tartrate (Ambien (Generic)) 5 mg PO QHS PRN PRN PRN Reason: Insomnia Medical Necessity - Tobacco Use Smoking Status: Never smoker Assessment/Plan All Active Problems 36 weeks gestation of (Acute) Active labor (Acute) Factor V deficiency (Acute) MTHFR (methylene THF reductase) deficiency and homocystinuria (Acute) A/P: S/P Day #2 after labor at 36.4 weeks Infant son is in SCN mother Normal involution and course Educated on PPD and when to call Declines any additional needs. Would like discharged late today and to [facility] status if remains inpatient To follow up with a 2 week telehealth visit and a 6 week routine visit
[2020-06-30 08:35] VITALS: BP 118/75; PULSE 87; RESP 18; TEMP 37.1
[2020-06-30] MEDS: Ibuprofen 600 MG Tablet PO ×2 (08:48→17:17)
[2020-06-30] MEDS: buPROPion (XL) 150 MG TABLET.XL PO (10:39)
[2020-06-30] MEDS: Sertraline 100 MG Tablet 200 MG PO (10:39)
--- NOTE | 2020-06-30 13:22 | CASEMGMT ---
Social Work Met with MOB in [facility] to follow up on support. MOB reporting to be doing okay. MOB reports to have chosen to go with Navdeep as infant name. MOB denies any current concerns. Active support and listening provided. Art CHEUNG, JOSHUA
[2020-06-30 13:53] VITALS: BP 120/73; PULSE 87; RESP 18; TEMP 36.8; O2SAT 98
[2020-07-02 14:58] LABS: Pathology Specimen OB SEE PATHOLOGY REPORT
== END 2020-06-30 17:30 | disposition home or self-care (01) | DRG 806 ==
LOC: WPOUT 13:28 → WP 13:28
PROVIDERS: Admitting Provider Obstetrics & Gynecology; Visit Provider Obstetrics & Gynecology
DX: O60.14X0 Preterm labor third trimester with preterm delivery third trimester, not applicable or unspecified (principal); E72.12 Methylenetetrahydrofolate reductase deficiency; Z37.0 Single live birth; O99.12 Other diseases of the blood and blood-forming organs and certain disorders involving the immune mechanism complicating childbirth; D68.51 Activated protein C resistance; O99.284 Endocrine, nutritional and metabolic diseases complicating childbirth; O99.344 Other mental disorders complicating childbirth; F32.9 Major depressive disorder, single episode, unspecified; O70.0 First degree perineal laceration during delivery; Z3A.36 36 weeks gestation of pregnancy
CPT/HCPCS: 59025; 59050; 85025; 85610; 85730; 86850; 86900; 86901; 87081; 87653; 88307; 99218; J7120; 90686; G0378; J0702

== ENCOUNTER → 2020-09-03 10:35 | Outpatient (CLI) | payer OTHER, SELFPAY ==
[2020-06-28 10:53] VITALS: BMI 27.3
[2020-09-03 13:43] LABS: hCG Titer Quant., Serum < 1 mIU/mL (1-3)
== END ==
PROVIDERS: Visit Provider Student in an Organized Health Care Education/Training Program
DX: N93.8 Other specified abnormal uterine and vaginal bleeding (principal)
CPT/HCPCS: 36415; 84702